=== PATIENT | female | born 1960 | race Caucasian/White ===

== ENCOUNTER 2018-09-07 20:28 | Inpatient (IN) | payer OTHER ==
[2018-09-07 22:09] LABS: ADD MAN DIFF? NO
[2018-09-07] MEDS: NITROGLYCERIN (SL) 0.4 MG TAB SL (22:09)
[2018-09-07] MEDS: ASPIRIN 325 MG TAB PO (22:09)
[2018-09-07 22:11] LABS: WHITE BLOOD COUNT 6.2 10^3/ul (4.8-10.8)
[2018-09-07 22:11] LABS: BASOPHIL # 0.1 10^3/ul (0.0-0.1); BASOPHILS % 0.8 % (0.0-2.0); EOSINOPHILS # 0.1 10^3/ul (0.0-0.5); EOSINOPHILS % 1.3 % (0.0-7.0); HEMATOCRIT 41.6 % (37.0-47.0); HEMOGLOBIN 13.7 g/dl (12.0-16.0); LYMPHOCYTES # 2.4 10^3/ul (0.8-2.9); LYMPHOCYTES % 38.8 % (15.0-51.0); MEAN CORPUSCULAR HEMOGLOBIN 28.6 pg (29.0-33.0); MEAN CORPUSCULAR HGB CONC 32.9 g/dl (32.0-37.0); MEAN CORPUSCULAR VOLUME 86.8 fl (82.0-101.0); MEAN PLATELET VOLUME 9.8 fl (7.4-10.4); MONOCYTE # 0.5 10^3/ul (0.3-0.9); MONOCYTES % 7.5 % (0.0-11.0); NEUTROPHIL # 3.2 10^3/ul (1.6-7.5); NEUTROPHILS % 51.4 % (39.0-77.0); PLATELET COUNT 302 10^3/UL (140-415); RED BLOOD COUNT 4.79 10^6/ul (4.20-5.40); RED CELL DISTRIBUTION WIDTH 13.2 % (11.5-14.5)
[2018-09-07 22:29] LABS: INR 0.99; PROTIME 13.2 Sec (11.9-14.9)
[2018-09-07 22:32] LABS: ALANINE AMINOTRANSFERASE 26 IU/L (13-69); ALBUMIN 4.4 g/dl (3.3-4.9); ALBUMIN/GLOBULIN RATIO 1.33; ALKALINE PHOSPHATASE 118 IU/L (42-121); ANION GAP 12 (5-13); ASPARTATE AMINO TRANSFERASE 26 IU/L (15-46); BILIRUBIN,INDIRECT 0.4 mg/dl (0-1.1); BILIRUBIN,TOTAL 0.4 mg/dl (0.2-1.3); BLOOD UREA NITROGEN 13 mg/dl (7-20); CALCIUM 9.7 mg/dl (8.4-10.2); CARBON DIOXIDE 28 mmol/L (21-31); CHLORIDE 103 mmol/L (97-110); CREATINE KINASE 130 IU/L (23-200); Estimated GFR > 60 mL/min (>60); GLUCOSE 98 mg/dl (70-220); POTASSIUM 4.4 mmol/L (3.5-5.1); SODIUM 143 mmol/L (135-144); TOTAL PROTEIN 7.7 g/dl (6.1-8.1)
[2018-09-07 22:44] LABS: B-TYPE NATRIURETIC PEPTIDE 36 PG/ML (0-125); CK INDEX 1.2; CK-MB 1.56 ng/ml (0.0-2.4); TROPONIN-I < 0.012 ng/ml (0.000-0.120)
[2018-09-07] MEDS: morphine 4 MG/ML VIAL IV (22:49)
[2018-09-07] MEDS: SOD CHLORIDE 0.9% 1,000 ML IV (22:50)
[2018-09-07] MEDS: ONDANSETRON 4 MG INJ IV (22:50)
[2018-09-08] MEDS: ZOLPIDEM 5 MG TAB PO (01:54)
[2018-09-08] MEDS: ACETAMINOPHEN 325 MG TAB PO ×2 (01:59→11:31)
[2018-09-08 04:32] LABS: TROPONIN-I < 0.012 ng/ml (0.000-0.120)
[2018-09-08 11:18] LABS: TROPONIN-I < 0.012 ng/ml (0.000-0.120)
[2018-09-08] MEDS: NITROGLYCERIN (SL) 0.4 MG TAB SL (11:24)
[2018-09-08] MEDS ORDERED: LORAZEPAM 0.5 MG TAB PO (12:30)
[2018-09-08] MEDS ORDERED: hydrALAzine 20 MG INJ IV (12:30)
[2018-09-08] MEDS ORDERED: morphine 2 MG INJ IV (12:30)
[2018-09-08] MEDS: PANTOPRAZOLE (EC) 40 MG TAB PO (13:17)
[2018-09-08 14:46] LABS: D-DIMER 405.04 ng/ml (<460)
[2018-09-08 16:15] LABS: TROPONIN-I < 0.012 ng/ml (0.000-0.120)
[2018-09-08] MEDS: ATORVASTATIN 20 MG TAB PO (20:50)
[2018-09-08] MEDS: ISOSORBIDE DINITRATE 10 MG TAB PO (20:50)
[2018-09-09] MEDS: ACETAMINOPHEN 325 MG TAB PO (04:01)
[2018-09-09] MEDS ORDERED: PANTOPRAZOLE (EC) 40 MG TAB PO (06:00)
[2018-09-09] MEDS: PANTOPRAZOLE (EC) 40 MG TAB PO (07:02)
[2018-09-09 07:09] LABS: CHOLESTEROL 237 mg/dl (100-200)
[2018-09-09 07:09] LABS: CHOL/HDL RATIO 4.4 RATIO; HDL CHOLESTEROL 53 mg/dl (35-98); LDL CHOLESTEROL,CALCULATED 155 mg/dl; TRIGLYCERIDES 143 mg/dl (0-149)
[2018-09-09] MEDS: ISOSORBIDE DINITRATE 10 MG TAB PO ×3 (09:00→20:51)
[2018-09-09] MEDS: AMLODIPINE 5 MG TAB NGT (09:00)
[2018-09-09] MEDS: REGADENOSON 0.4 MG/5 ML SYG (12:59)
[2018-09-09] MEDS: ATORVASTATIN 20 MG TAB PO (20:51)
[2018-09-09 22:03] LABS: AMYLASE 91 U/L (11-123)
[2018-09-09 22:03] LABS: LIPASE 56 U/L (23-300)
[2018-09-09] MEDS: ZOLPIDEM 5 MG TAB PO (22:42)
[2018-09-10] MEDS: PANTOPRAZOLE (EC) 40 MG TAB PO (05:39)
[2018-09-10] MEDS: ISOSORBIDE DINITRATE 10 MG TAB PO ×3 (08:27→20:18)
[2018-09-10] MEDS: AMLODIPINE 5 MG TAB NGT (08:27)
[2018-09-10] MEDS: PROPOFOL 40 ML (11:38)
[2018-09-10] MEDS: PHENYLephrine (100 MCG/ML) 5ML SYG (11:38)
[2018-09-10] MEDS: ACETAMINOPHEN 325 MG TAB PO (14:01)
[2018-09-10] MEDS: ONDANSETRON 4 MG INJ IV (16:09)
[2018-09-10] MEDS: ATORVASTATIN 20 MG TAB PO (20:17)
[2018-09-11] MEDS: PANTOPRAZOLE (EC) 40 MG TAB PO (06:03)
[2018-09-11] MEDS: ISOSORBIDE DINITRATE 10 MG TAB PO ×2 (08:26→13:11)
[2018-09-11] MEDS: AMLODIPINE 5 MG TAB NGT (08:26)
[2018-09-11] MEDS ORDERED: ASPIRIN (EC) 81 MG TAB PO (15:00)
== END 2018-09-11 14:43 | disposition home or self-care (01) | DRG 313 ==
LOC: TEL 23:21 → E/R 20:28 → TEL 23:21
PROC: 0DB78ZX Excision of Stomach, Pylorus, Via Natural or Artificial Opening Endoscopic, Diagnostic (ICD-10-PCS; principal; 2018-09-10 09:30)
DX: R07.9 Chest pain, unspecified (principal); K21.9 Gastro-esophageal reflux disease without esophagitis; I10 Essential (primary) hypertension; E78.5 Hyperlipidemia, unspecified; F32.9 Major depressive disorder, single episode, unspecified; F41.9 Anxiety disorder, unspecified; K29.70 Gastritis, unspecified, without bleeding; Z79.82 Long term (current) use of aspirin; Z90.710 Acquired absence of both cervix and uterus; Z90.49 Acquired absence of other specified parts of digestive tract
CPT/HCPCS: 71045; 78452; 80053; 80061; 82150; 82550; 82553; 83690; 83880; 84484; 85025; 85378; 85610; 85730; 88305; 88312; 93005; 93017; 93306; 99285-25

== ENCOUNTER 2019-05-09 09:51 | Inpatient (IN) | payer OTHER ==
[2019-05-09] MEDS: ASPIRIN 81 MG TAB PO (10:36)
[2019-05-09] MEDS: LIDOCAINE/MYLANTA 40 ML BTL PO (10:36)
[2019-05-09] MEDS: NITROGLYCERIN 2% 1 GM OINT PKT TD (10:36)
[2019-05-09 10:39] LABS: ADD MAN DIFF? NO
[2019-05-09 10:41] LABS: BASOPHILS % 0.7 % (0.0-2.0); EOSINOPHILS # 0.1 10^3/ul (0.0-0.5); EOSINOPHILS % 1.3 % (0.0-7.0); HEMATOCRIT 39.2 % (37.0-47.0); LYMPHOCYTES # 1.8 10^3/ul (0.8-2.9); LYMPHOCYTES % 38.7 % (15.0-51.0); MEAN CORPUSCULAR HEMOGLOBIN 28.6 pg (29.0-33.0); MEAN CORPUSCULAR HGB CONC 33.2 g/dl (32.0-37.0); MEAN CORPUSCULAR VOLUME 86.3 fl (82.0-101.0); MEAN PLATELET VOLUME 9.9 fl (7.4-10.4); MONOCYTE # 0.4 10^3/ul (0.3-0.9); MONOCYTES % 8.7 % (0.0-11.0); NEUTROPHIL # 2.3 10^3/ul (1.6-7.5); NEUTROPHILS % 50.4 % (39.0-77.0); PLATELET COUNT 268 10^3/UL (140-415); RED BLOOD COUNT 4.54 10^6/ul (4.20-5.40); RED CELL DISTRIBUTION WIDTH 13.2 % (11.5-14.5)
[2019-05-09 10:41] LABS: WHITE BLOOD COUNT 4.6 10^3/ul (4.8-10.8)
[2019-05-09 10:58] LABS: ALANINE AMINOTRANSFERASE 23 IU/L (13-69); ALBUMIN 4.2 g/dl (3.3-4.9); ALBUMIN/GLOBULIN RATIO 1.35; ALKALINE PHOSPHATASE 83 IU/L (42-121); ANION GAP 10 (5-13); ASPARTATE AMINO TRANSFERASE 23 IU/L (15-46); BILIRUBIN,INDIRECT 0.5 mg/dl (0-1.1); BILIRUBIN,TOTAL 0.5 mg/dl (0.2-1.3); BLOOD UREA NITROGEN 11 mg/dl (7-20); CALCIUM 9.7 mg/dl (8.4-10.2); CARBON DIOXIDE 24 mmol/L (21-31); CHLORIDE 108 mmol/L (97-110); CREATININE 0.52 mg/dl (0.44-1.00); Estimated GFR > 60 mL/min (>60); GLUCOSE 85 mg/dl (70-220); LIPASE 45 U/L (23-300); SODIUM 142 mmol/L (135-144); TOTAL PROTEIN 7.3 g/dl (6.1-8.1)
[2019-05-09 11:09] LABS: TROPONIN-I < 0.012 ng/ml (0.000-0.120)
[2019-05-09] MEDS: PANTOPRAZOLE 40 MG INJ IV (11:13)
[2019-05-09] MEDS ORDERED: ACETAMINOPHEN 325 MG TAB PO (12:30)
[2019-05-09] MEDS ORDERED: ONDANSETRON 4 MG INJ IV (12:30)
[2019-05-09 16:50] LABS: CREATINE KINASE 54 IU/L (23-200)
[2019-05-09 17:03] LABS: CK INDEX 1.4; CK-MB 0.73 ng/ml (0.0-2.4); TROPONIN-I < 0.012 ng/ml (0.000-0.120)
[2019-05-09] MEDS ORDERED: morphine 2 MG INJ IV (18:30)
[2019-05-09] MEDS ORDERED: NACL 0.9% 3 ML SYG IV (18:30)
[2019-05-09] MEDS: ONDANSETRON 4 MG INJ IV (19:31)
[2019-05-09] MEDS: ACETAMINOPHEN 325 MG TAB PO (19:31)
[2019-05-09] MEDS: FAMOTIDINE 20 MG INJ IV (20:46)
[2019-05-10 00:06] LABS: CREATINE KINASE 49 IU/L (23-200)
[2019-05-10 00:18] LABS: CK INDEX 1.3
[2019-05-10 00:27] LABS: CK-MB 0.66 ng/ml (0.0-2.4); TROPONIN-I < 0.012 ng/ml (0.000-0.120)
[2019-05-10 07:31] LABS: ADD MAN DIFF? NO
[2019-05-10 07:35] LABS: BASOPHILS % 0.6 % (0.0-2.0); EOSINOPHILS % 0.8 % (0.0-7.0); HEMATOCRIT 40.8 % (37.0-47.0); HEMOGLOBIN 13.2 g/dl (12.0-16.0); LYMPHOCYTES # 1.7 10^3/ul (0.8-2.9); LYMPHOCYTES % 35.5 % (15.0-51.0); MEAN CORPUSCULAR HEMOGLOBIN 28.3 pg (29.0-33.0); MEAN CORPUSCULAR HGB CONC 32.4 g/dl (32.0-37.0); MEAN CORPUSCULAR VOLUME 87.6 fl (82.0-101.0); MEAN PLATELET VOLUME 10.2 fl (7.4-10.4); MONOCYTE # 0.3 10^3/ul (0.3-0.9); MONOCYTES % 6.6 % (0.0-11.0); NEUTROPHIL # 2.7 10^3/ul (1.6-7.5); NEUTROPHILS % 56.3 % (39.0-77.0); PLATELET COUNT 284 10^3/UL (140-415); RED BLOOD COUNT 4.66 10^6/ul (4.20-5.40); RED CELL DISTRIBUTION WIDTH 13.3 % (11.5-14.5)
[2019-05-10 07:35] LABS: WHITE BLOOD COUNT 4.9 10^3/ul (4.8-10.8)
[2019-05-10] MEDS: ASPIRIN 81 MG TAB PO (08:04)
[2019-05-10] MEDS: FAMOTIDINE 20 MG INJ IV ×2 (08:04→20:03)
[2019-05-10 08:06] LABS: ALANINE AMINOTRANSFERASE 23 IU/L (13-69); ALBUMIN 4.1 g/dl (3.3-4.9); ALBUMIN/GLOBULIN RATIO 1.32; ALKALINE PHOSPHATASE 80 IU/L (42-121); ANION GAP 8 (5-13); ASPARTATE AMINO TRANSFERASE 25 IU/L (15-46); BILIRUBIN,INDIRECT 0.5 mg/dl (0-1.1); BILIRUBIN,TOTAL 0.5 mg/dl (0.2-1.3); BLOOD UREA NITROGEN 10 mg/dl (7-20); CALCIUM 9.6 mg/dl (8.4-10.2); CARBON DIOXIDE 28 mmol/L (21-31); CHLORIDE 104 mmol/L (97-110); CREATININE 0.62 mg/dl (0.44-1.00); Estimated GFR > 60 mL/min (>60); GLUCOSE 91 mg/dl (70-220); POTASSIUM 4.2 mmol/L (3.5-5.1); SODIUM 140 mmol/L (135-144); TOTAL PROTEIN 7.2 g/dl (6.1-8.1)
[2019-05-10] MEDS: ENOXAPARIN 30 MG/0.3 ML SYG SC (08:08)
[2019-05-10 08:51] LABS: HEMOGLOBIN A1C 5.3 % (0-5.9)
[2019-05-10] MEDS ORDERED: BARIUM SULFATE 135 ML (E-Z HD) PO ×2 (17:13→17:53)
[2019-05-10] MEDS: NIFEdipine 10 MG CAP PO ×2 (17:44→23:27)
[2019-05-10] MEDS ORDERED: SIMETH/SOD BICARB/CIT AC PKT (E-Z- GAS II) PO (17:52)
[2019-05-10] MEDS: ONDANSETRON 4 MG INJ IV (18:06)
[2019-05-11] MEDS: NIFEdipine 10 MG CAP PO ×3 (05:11→17:57)
[2019-05-11] MEDS: FAMOTIDINE 20 MG INJ IV ×2 (08:05→20:18)
[2019-05-11] MEDS: ASPIRIN 81 MG TAB PO (08:05)
[2019-05-11] MEDS: ENOXAPARIN 30 MG/0.3 ML SYG SC (08:18)
[2019-05-11] MEDS: PEG/ELECTROLYTES 4L BTL PO (20:48)
[2019-05-12] MEDS: NIFEdipine 10 MG CAP PO ×3 (06:00→12:22)
[2019-05-12] MEDS: ASPIRIN 81 MG TAB PO (08:02)
[2019-05-12] MEDS: FAMOTIDINE 20 MG INJ IV (08:12)
[2019-05-12] MEDS: ENOXAPARIN 30 MG/0.3 ML SYG SC (08:20)
[2019-05-12] MEDS ORDERED: ONDANSETRON 4 MG INJ IV (09:30)
[2019-05-12] MEDS ORDERED: PROPOFOL 20 ML ×2 (09:32→10:41)
[2019-05-12] MEDS ORDERED: FENTAnyl 50 MCG/ML VIAL (09:32)
== END 2019-05-12 16:40 | disposition home or self-care (01) | DRG 392 ==
LOC: E/R 09:51 → TEL 12:21
PROC: 0DB58ZX Excision of Esophagus, Via Natural or Artificial Opening Endoscopic, Diagnostic (ICD-10-PCS; principal; 2019-05-12 09:15)
PROC: 0DB68ZX Excision of Stomach, Via Natural or Artificial Opening Endoscopic, Diagnostic (ICD-10-PCS; 2019-05-12 09:15)
PROC: 0DBE8ZX Excision of Large Intestine, Via Natural or Artificial Opening Endoscopic, Diagnostic (ICD-10-PCS; 2019-05-12 09:15)
DX: K21.0 Gastro-esophageal reflux disease with esophagitis (principal); K22.0 Achalasia of cardia; R13.10 Dysphagia, unspecified; R07.9 Chest pain, unspecified; E78.5 Hyperlipidemia, unspecified; F32.9 Major depressive disorder, single episode, unspecified; F41.9 Anxiety disorder, unspecified; I10 Essential (primary) hypertension; R10.13 Epigastric pain; K31.7 Polyp of stomach and duodenum; Z79.82 Long term (current) use of aspirin
CPT/HCPCS: 36415; 71045; 74230; 80053; 82550; 82553; 83036; 83690; 84132; 84484; 85025; 88305; 88312; 88313; 93005; 96374; 99285-25; G0378